=== PATIENT | male | born 1950 | race Caucasian/White ===

== ENCOUNTER → 2020-05-24 | Outpatient (REF) | payer MEDICARE, BC | LOC: M LABSMT 11:47 | PROVIDERS: ATTEND Nurse Practitioner Family | DX: Z12.5 Encounter for screening for malignant neoplasm of prostate (principal) | CPT/HCPCS: 51798; G0103; G0463 ==

== ENCOUNTER → 2020-06-01 | Outpatient (REF) | payer MEDICARE, BC | LOC: M SMT 16:48 | PROVIDERS: ATTEND Nurse Practitioner Family | DX: N39.0 Urinary tract infection, site not specified (principal) ==

== ENCOUNTER → 2020-07-12 | Outpatient (CLI) | payer MEDICARE, BC ==
--- NOTE | 2020-07-12 12:55 | REPPI ---
INDICATION: ELEVATED PSA. COMPARISON: None. TECHNIQUE: Transrectal prostate sonography with sonographic guidance. FINDINGS: Trans rectal prostate sonography demonstrates unremarkable seminal vesicles. Prostate gland is heterogeneously enlarged with calcifications and cystic changes noted. Glandular dimensions are measured at 4.2 x 4.3 x 5.5 cm with a calculated glandular volume of 51.6 ml. There is a 0.6 cm nodule in the right side of the apex of the prostate gland. Transrectal sonographic guidance is provided to Dr. Chun who performed trans rectal ultrasound guided needle biopsy procedure. IMPRESSION: Transrectal prostate sonography shows a evidence of benign prostatic hypertrophy. There is a 0.6 cm nodule in the right side of the apex. Guidance is provided to Dr. Chun who performed a transrectal ultrasound-guided needle biopsy procedure <Electronically signed by Armando Patel > 07/12/20 3506
== END ==
LOC: M SMT PRO 11:02
PROVIDERS: ATTEND Urology
DX: R97.20 Elevated prostate specific antigen [PSA] (principal)
CPT/HCPCS: 55700; 76872; 76942; G0416